=== PATIENT | male | born 1995 | race African-American/Black ===

== ENCOUNTER 2018-09-22 01:10 | Emergency (ER) | payer SELFPAY ==
[~2018-09-22] VITALS: Ht 188 cm; Wt 87.0 kg
[2018-09-22] MEDS ORDERED: MORPHINE SULFATE 10 MG/ML CPJ ONE (01:18)
[2018-09-22] MEDS ORDERED: MORPHINE SULFATE 4 MG/ML CPJ (NOT FOR IM USE) IV STA (01:20)
[2018-09-22] MEDS ORDERED: ONDANSETRON HCL 4MG/2ML INJ IV STA (01:20)
[2018-09-22] MEDS ORDERED: SODIUM CHLORIDE 0.9% 1,000 ML IV ONE (01:20)
[2018-09-22] MEDS ORDERED: NEOMY SULF/BACITRAC ZN/POLY OINT 28GM TOP STA ×2 (01:24→01:40)
[2018-09-22] MEDS ORDERED: HYDROMORPHONE HCL/PF 2MG/ML CPJ IV ONE ×2 (01:30→02:30)
[2018-09-22 03:35] VITALS: BP 141/74
== END 2018-09-22 03:49 | disposition short-term general hospital (02) ==
LOC: ER 01:10
DX: T20.30XA Burn of third degree of head, face, and neck, unspecified site, initial encounter (principal); T22.30XA Burn of third degree of shoulder and upper limb, except wrist and hand, unspecified site, initial encounter; T31.11 Burns involving 10-19% of body surface with 10-19% third degree burns; X11.8XXA Contact with other hot tap-water, initial encounter; Y93.89 Activity, other specified; Y92.89 Other specified places as the place of occurrence of the external cause; Y99.8 Other external cause status
CPT/HCPCS: 16030; 96374; 96375; 96376; 99291; J1170; J2270; J2405; J7030; Z7610